=== PATIENT | male | born 1965 | race African-American/Black ===

== ENCOUNTER 2020-08-16 12:32 | Inpatient (IN) | payer OTHER ==
[2020-08-16 15:19] VITALS: BMI 31.2
[2020-08-16] MEDS ORDERED: IBUPROFEN 400 MG TABLET (FP) PO PRN (17:12)
[2020-08-16] MEDS ORDERED: NICOTINE POLACRILEX 2 MG GUM BC PRN (17:12)
[2020-08-16] MEDS ORDERED: ACETAMINOPHEN 325 MG TABLET (FP) PO PRN (17:12)
[2020-08-16] MEDS ORDERED: LOPERAMIDE HCL 2 MG CAPSULE PO PRN (17:12)
[2020-08-16] MEDS ORDERED: P-EPHED 60MG/TRIPROLIDI 2.5MG TABLET PO PRN (17:12)
[2020-08-16] MEDS ORDERED: MAG HYDROX/AL HYDROX/SIMETH 30 ML UNIT-DOSE CUP PO PRN (17:12)
[2020-08-16] MEDS ORDERED: guaiFENesin 200 MG/10 ML 10 ML UNIT-DOSE CUPS PO PRN (17:12)
[2020-08-16] MEDS ORDERED: MAGNESIUM CITRATE 300 ML BOTTLE PO PRN (17:12)
[2020-08-16] MEDS ORDERED: MAGNESIUM HYDROX 2400MG/30ML ORAL SUSPENSION 30 ML CUP PO PRN (17:12)
[2020-08-16] MEDS ORDERED: TUBERCULIN PPD 5 TU/0.1ML VIAL ID ONE ×2 (17:51→22:33)
[2020-08-16] MEDS: NICOTINE 7 MG/24 HOURS TOPICAL PATCH TD SCH (18:31)
[2020-08-16] MEDS ORDERED: THIAMINE HCL 100 MG TABLET (FP) PO SCH (22:00)
[2020-08-16] MEDS ORDERED: MELATONIN 5 MG TABLETS PO SCH (22:00)
[2020-08-17 06:49] VITALS: PULSE 60; TEMP 97.1
[2020-08-17] MEDS ORDERED: metFORMIN HCL 500 MG TABLET (FP) PO SCH (07:00)
[2020-08-17 07:15] VITALS: BP 160/80
[2020-08-17] MEDS ORDERED: METHADONE HCL 10 MG TABLET PO ONE (09:06)
[2020-08-17] MEDS ORDERED: METHADONE HCL 10 MG TABLET ONE (09:13)
[2020-08-17] MEDS ORDERED: METHADONE HCL 40 MG DISPERSABLE TABLET ONE (09:13)
[2020-08-17] MEDS ORDERED: METHADONE 80 MG, METHADONE 20 MG PO ONE (09:15)
[2020-08-17] MEDS: NICOTINE 7 MG/24 HOURS TOPICAL PATCH TD SCH (09:16)
[2020-08-17 09:39] LABS: HEMATOCRIT 37.1 % (35.4-49); HEMOGLOBIN 12.3 GM/dL (11.7-16.9); MCH 28.6 pg (25.7-33.7); MCHC 33.2 g/dl (32.0-35.9); MEAN CELL VOLUME 86.2 fl (80-96); MEAN PLT VOLUME 10.1 fl (7.5-11.1); PLATELET COUNT 250 K/MM3 (134-434); RBC 4.31 M/mm3 (4.00-5.60); RDW 14.8 % (11.9-15.9); WHITE BLOOD COUNT 6.6 K/mm3 (4.0-10.0)
[2020-08-17 09:58] LABS: CALCIUM 9.3 mg/dL (8.5-10.1)
[2020-08-17 09:59] LABS: ALBUMIN 3.8 g/dl (3.4-5.0); BLOOD UREA NITROGEN 23.2 mg/dL (7-18)
[2020-08-17] MEDS ORDERED: amLODIPine BESYLATE 5 MG TABLET (FP) PO SCH (10:00)
[2020-08-17] MEDS ORDERED: NICOTINE 21 MG/24 HOURS TOPICAL PATCH TD SCH (10:00)
[2020-08-17] MEDS ORDERED: PRENATAL VITAMINS W/ FOLIC ACID TABLET (FP) PO SCH (10:00)
[2020-08-17 10:02] LABS: CREATININE 1.7 mg/dL (0.55-1.3)
[2020-08-17 10:04] LABS: BILIRUBIN,TOTAL 0.4 mg/dL (0.2-1); TOT PROT 8.2 g/dl (6.4-8.2)
== END 2020-08-17 09:17 | disposition left against medical advice (07) | DRG 770 ==
LOC: YASAS 12:32 → Y3E 16:48
PROVIDERS: ADMIT Allergy & Immunology; ATTEND Allergy & Immunology
PROC: HZ42ZZZ Group Counseling for Substance Abuse Treatment, Cognitive-Behavioral (ICD-10-PCS; principal; 2020-08-16)
DX: F14.20 Cocaine dependence, uncomplicated (principal); F11.20 Opioid dependence, uncomplicated; F17.210 Nicotine dependence, cigarettes, uncomplicated; I10 Essential (primary) hypertension; E11.9 Type 2 diabetes mellitus without complications; Z79.84 Long term (current) use of oral hypoglycemic drugs
CPT/HCPCS: 36415; 80053; 82962; 85027; 86780

== ENCOUNTER 2020-10-26 09:43 | Inpatient (IN) | payer OTHER ==
[2020-10-26 11:36] VITALS: BMI 31.4
[2020-10-26] MEDS ORDERED: MAG HYDROX/AL HYDROX/SIMETH 30 ML UNIT-DOSE CUP PO PRN (17:12)
[2020-10-26] MEDS ORDERED: P-EPHED 60MG/TRIPROLIDI 2.5MG TABLET PO PRN (17:12)
[2020-10-26] MEDS ORDERED: hydrOXYzine PAMOATE 25 MG CAPSULE (FP) PO PRN (17:12)
[2020-10-26] MEDS ORDERED: LOPERAMIDE HCL 2 MG CAPSULE PO PRN (17:12)
[2020-10-26] MEDS ORDERED: ACETAMINOPHEN 325 MG TABLET (FP) PO PRN (17:12)
[2020-10-26] MEDS ORDERED: guaiFENesin 200 MG/10 ML 10 ML UNIT-DOSE CUPS PO PRN (17:12)
[2020-10-26] MEDS ORDERED: MAGNESIUM CITRATE 300 ML BOTTLE PO PRN (17:12)
[2020-10-26] MEDS ORDERED: NICOTINE POLACRILEX 2 MG GUM BC PRN (17:12)
[2020-10-26] MEDS ORDERED: MAGNESIUM HYDROX 2400MG/30ML ORAL SUSPENSION 30 ML CUP PO PRN (17:12)
[2020-10-26] MEDS ORDERED: IBUPROFEN 400 MG TABLET (FP) PO PRN (17:12)
[2020-10-26] MEDS ORDERED: CLOTRIMAZOLE 1% CREAM 15 GM TUBE TP PRN (18:56)
[2020-10-26] MEDS ORDERED: THIAMINE HCL 100 MG TABLET (FP) PO SCH (22:00)
[2020-10-26] MEDS ORDERED: MELATONIN 5 MG TABLETS PO SCH (22:00)
[2020-10-27 06:36] VITALS: BP 158/53; PULSE 65; TEMP 97.8
[2020-10-27] MEDS ORDERED: metFORMIN HCL 500 MG TABLET (FP) PO SCH (07:00)
[2020-10-27] MEDS ORDERED: METHADONE HCL 40 MG DISPERSABLE TABLET ONE (07:30)
[2020-10-27] MEDS ORDERED: METHADONE 80 MG, METHADONE 20 MG PO SCH (07:30)
[2020-10-27] MEDS ORDERED: METHADONE HCL 10 MG TABLET PO SCH (07:30)
[2020-10-27] MEDS ORDERED: METHADONE HCL 10 MG TABLET ONE (07:30)
[2020-10-27] MEDS ORDERED: amLODIPine BESYLATE 2.5 MG TABLET (FP) PO SCH (10:00)
[2020-10-27] MEDS ORDERED: PRENATAL VITAMINS W/ FOLIC ACID TABLET (FP) PO SCH (10:00)
[2020-10-27 15:32] LABS: HEMOGLOBIN 12.2 GM/dL (11.7-16.9); MCH 27.7 pg (25.7-33.7); MCHC 32.1 g/dl (32.0-35.9); MEAN CELL VOLUME 86.2 fl (80-96); MEAN PLT VOLUME 8.6 fl (7.5-11.1); PLATELET COUNT 301 10^3/uL (134-434); RBC 4.41 M/mm3 (4.00-5.60); RDW 14.5 % (11.9-15.9); WHITE BLOOD COUNT 6.3 K/mm3 (4.0-10.0)
[2020-10-27 15:40] LABS: ALBUMIN 3.8 g/dl (3.4-5.0); CALCIUM 9.2 mg/dL (8.5-10.1)
[2020-10-27 15:41] LABS: BLOOD UREA NITROGEN 23.8 mg/dL (7-18); CREATININE 1.4 mg/dL (0.55-1.3)
[2020-10-27 15:44] LABS: BILIRUBIN,TOTAL 0.3 mg/dL (0.2-1); TOT PROT 8.5 g/dl (6.4-8.2)
== END 2020-10-27 15:50 | disposition left against medical advice (07) | DRG 770 ==
LOC: YASAS 09:43 → Y3W 18:18
PROVIDERS: ADMIT Allergy & Immunology; ATTEND Allergy & Immunology
PROC: HZ42ZZZ Group Counseling for Substance Abuse Treatment, Cognitive-Behavioral (ICD-10-PCS; principal; 2020-10-26)
DX: F14.20 Cocaine dependence, uncomplicated (principal); F11.20 Opioid dependence, uncomplicated; F10.10 Alcohol abuse, uncomplicated; F17.210 Nicotine dependence, cigarettes, uncomplicated; I10 Essential (primary) hypertension; E11.9 Type 2 diabetes mellitus without complications; Z79.84 Long term (current) use of oral hypoglycemic drugs
CPT/HCPCS: 36415; 80053; 82962; 85027; 86780; C9803; U0003; U0005

== ENCOUNTER 2023-08-10 11:35 | Inpatient (IN) | payer OTHER ==
[2023-08-10 12:26] VITALS: BMI 30.2
[2023-08-10] MEDS ORDERED: DICYCLOMINE HCL 10 MG CAPSULE PO PRN (13:25)
[2023-08-10] MEDS ORDERED: MAG HYDROX/AL HYDROX/SIMETH 30 ML UNIT-DOSE CUP PO PRN (13:25)
[2023-08-10] MEDS ORDERED: NALOXONE HCL 0.4 MG/ML VIAL IM PRN (13:25)
[2023-08-10] MEDS ORDERED: BENZONATATE 200 MG CAPSULE PO PRN (13:25)
[2023-08-10] MEDS ORDERED: diazePAM 5 MG TABLET PO PRN (13:25)
[2023-08-10] MEDS ORDERED: BENZOCAINE/MENTHOL (CHLORASEPTIC ) LOZENGE MM PRN (13:25)
[2023-08-10] MEDS ORDERED: guaiFENesin 600 MG TABLET.ER (FP) PO PRN (13:25)
[2023-08-10] MEDS ORDERED: MAGNESIUM HYDROX 2400MG/30ML ORAL SUSPENSION 30 ML CUP PO PRN (13:25)
[2023-08-10] MEDS ORDERED: BISMUTH SUBSALICYLATE 524 MG/30 ML PO PRN (13:25)
[2023-08-10] MEDS ORDERED: ACETAMINOPHEN 325 MG TABLET (FP) PO PRN (13:25)
[2023-08-10] MEDS ORDERED: POLYETHYLENE GLYCOL (HEALTHYLAX) 3350 17 GM PACKET PO PRN (13:25)
[2023-08-10] MEDS ORDERED: NALOXONE HCL (KLOXXADO) 8 MG SPRAY NS PRN (13:25)
[2023-08-10] MEDS ORDERED: IBUPROFEN 400 MG TABLET (FP) PO PRN (13:25)
[2023-08-10] MEDS ORDERED: LOPERAMIDE HCL 2 MG CAPSULE PO PRN (13:25)
[2023-08-10] MEDS ORDERED: PRENATAL VITAMINS W/ FOLIC ACID TABLET (FP) PO ONE (14:08)
[2023-08-10] MEDS ORDERED: NICOTINE 21 MG/24 HOURS TOPICAL PATCH ONE (14:08)
[2023-08-10] MEDS: NICOTINE 21 MG/24 HOURS TOPICAL PATCH TD SCH (14:30)
[2023-08-10] MEDS: PRENATAL VITAMINS W/ FOLIC ACID TABLET (FP) PO SCH (14:30)
[2023-08-10] MEDS: metFORMIN HCL 500 MG TABLET (FP) PO SCH (17:53)
[2023-08-10] MEDS: MELATONIN 5 MG TABLETS PO SCH (22:24)
[2023-08-10] MEDS: THIAMINE HCL 100 MG TABLET (FP) PO SCH (22:24)
[2023-08-10] MEDS: diazePAM 5 MG TABLET PO SCH (22:25)
[2023-08-11] MEDS ORDERED: methaDONE HCL 10 MG TABLET PO SCH (06:00)
[2023-08-11] MEDS: methaDONE 80 MG, methaDONE 20 MG PO SCH (06:23)
[2023-08-11] MEDS: amLODIPine BESYLATE 2.5 MG TABLET (FP) PO SCH (10:19)
[2023-08-11] MEDS: ONDANSETRON *ODT* 4 MG TABLET SL PRN (10:19)
[2023-08-11] MEDS: METHOCARBAMOL 500 MG TABLET PO PRN (10:19)
[2023-08-11] MEDS: IBUPROFEN 600 MG TABLET (FP) PO PRN (10:20)
[2023-08-11 15:30] LABS: CHLORIDE 106 mmol/L (98-107); POTASSIUM 4.7 mmol/L (3.5-5.1); SODIUM 140 mmol/L (136-145)
[2023-08-11 15:40] LABS: HEMOGLOBIN 11.2 GM/dL (11.7-16.9); MCH 27.4 pg (25.7-33.7); MCHC 31.9 g/dl (32.0-35.9); MEAN CELL VOLUME 85.9 fl (80-96); PLATELET COUNT 224 10^3/uL (134-434); RBC 4.07 M/mm3 (4.00-5.60); RDW 14.1 % (11.9-15.9); WHITE BLOOD COUNT 5.3 K/mm3 (4.0-10.0)
[2023-08-11 15:43] LABS: CALCIUM 9.3 mg/dL (8.5-10.1)
[2023-08-11 15:44] LABS: ALBUMIN 3.5 g/dl (3.4-5.0); ANION GAP 4 mmol/L (4-13); BLOOD UREA NITROGEN 21.3 mg/dL (7-18); CO2 29 mmol/L (21-32); GLUCOSE,RANDOM 186 mg/dL (74-106)
[2023-08-11 15:47] LABS: CREATININE 1.3 mg/dL (0.55-1.3); SGOT/AST 19 U/L (15-37); SGPT/ALT 29 U/L (13-61)
[2023-08-11 15:48] LABS: BILIRUBIN,TOTAL 0.2 mg/dL (0.2-1)
[2023-08-11 15:49] LABS: TOT PROT 7.6 g/dl (6.4-8.2)
[2023-08-11 15:50] LABS: ALK PHOS 113 U/L (45-117)
[2023-08-12] MEDS: diazePAM 5 MG TABLET PO SCH (05:59)
[2023-08-12] MEDS: metFORMIN HCL 500 MG TABLET (FP) PO SCH (16:42)
[2023-08-12] MEDS: LACTULOSE 20 GM/30 ML UDC (FOR ORAL USE ONLY) PO SCH (17:40)
[2023-08-13] MEDS: diazePAM 5 MG TABLET PO SCH (06:19)
[2023-08-13 20:45] VITALS: TEMP 97.7
[2023-08-13] MEDS: hydrOXYzine PAMOATE 25 MG CAPSULE (FP) PO PRN (22:45)
[2023-08-14] MEDS: diazePAM 5 MG TABLET PO ONE (05:53)
[2023-08-14 06:12] VITALS: BP 139/62; PULSE 60; RESP 16
== END 2023-08-14 09:30 | disposition home or self-care (01) | DRG 773 ==
LOC: YASAS 11:35 → Y6N 14:13
PROVIDERS: ADMIT Allergy & Immunology; ATTEND Surgery
PROC: HZ2ZZZZ Detoxification Services for Substance Abuse Treatment (ICD-10-PCS; principal; 2023-08-10)
DX: F10.230 Alcohol dependence with withdrawal, uncomplicated (principal); F11.20 Opioid dependence, uncomplicated; F14.20 Cocaine dependence, uncomplicated; F17.210 Nicotine dependence, cigarettes, uncomplicated; I10 Essential (primary) hypertension; E11.9 Type 2 diabetes mellitus without complications; Z79.84 Long term (current) use of oral hypoglycemic drugs
CPT/HCPCS: 36415; 80053; 80307; 82140; 82962; 83036; 84520; 85027; 86780; 93005; 93010; Q0162

== ENCOUNTER 2023-08-27 11:44 | Inpatient (IN) | payer OTHER ==
[2023-08-27 13:37] VITALS: BMI 30.1
[2023-08-27] MEDS ORDERED: guaiFENesin 600 MG TABLET.ER (FP) PO PRN (15:38)
[2023-08-27] MEDS ORDERED: BENZOCAINE/MENTHOL (CHLORASEPTIC ) LOZENGE MM PRN (15:38)
[2023-08-27] MEDS ORDERED: IBUPROFEN 400 MG TABLET (FP) PO PRN (15:38)
[2023-08-27] MEDS ORDERED: ACETAMINOPHEN 325 MG TABLET (FP) PO PRN (15:38)
[2023-08-27] MEDS ORDERED: POLYETHYLENE GLYCOL (HEALTHYLAX) 3350 17 GM PACKET PO PRN (15:38)
[2023-08-27] MEDS ORDERED: MAGNESIUM HYDROX 2400MG/30ML ORAL SUSPENSION 30 ML CUP PO PRN (15:38)
[2023-08-27] MEDS ORDERED: NALOXONE HCL (KLOXXADO) 8 MG SPRAY NS PRN (15:38)
[2023-08-27] MEDS ORDERED: LOPERAMIDE HCL 2 MG CAPSULE PO PRN (15:38)
[2023-08-27] MEDS ORDERED: NICOTINE POLACRILEX 2 MG GUM BUC PRN (15:38)
[2023-08-27] MEDS ORDERED: NALOXONE HCL 0.4 MG/ML VIAL IM PRN (15:38)
[2023-08-27] MEDS ORDERED: MAG HYDROX/AL HYDROX/SIMETH 30 ML UNIT-DOSE CUP PO PRN (15:38)
[2023-08-27] MEDS ORDERED: IBUPROFEN 600 MG TABLET (FP) PO PRN (15:38)
[2023-08-27] MEDS ORDERED: BENZONATATE 200 MG CAPSULE PO PRN (15:38)
[2023-08-27] MEDS: metFORMIN HCL 500 MG TABLET (FP) PO SCH (18:19)
[2023-08-27] MEDS: MELATONIN 5 MG TABLETS PO SCH (21:27)
[2023-08-27] MEDS: THIAMINE 100 MG TABLET PO SCH (21:27)
[2023-08-28] MEDS ORDERED: methaDONE HCL 10 MG TABLET PO SCH (09:30)
[2023-08-28] MEDS: methaDONE 80 MG, methaDONE 20 MG PO SCH (09:57)
[2023-08-28] MEDS: PRENATAL VITAMINS W/ FOLIC ACID TABLET (FP) PO SCH (09:57)
[2023-08-28 12:24] LABS: PH,URINE 5.5 (5.0-8.0); URINE APPEARANCE CLEAR; URINE BILIRUBIN NEGATIVE (NEGATIVE); URINE COLOR YELLOW; URINE GLUCOSE (UA) NEGATIVE (NEGATIVE); URINE KETONE NEGATIVE (NEGATIVE); URINE LEUK ESTERASE NEGATIVE (NEGATIVE); URINE NITRITE NEGATIVE (NEGATIVE); URINE PROTEIN NEGATIVE (NEGATIVE); URINE UROBILINOGEN 0.2 mg/dL (0.2-1.0)
[2023-08-30] MEDS: MELATONIN 5 MG TABLETS PO ONE (01:12)
[2023-08-30] MEDS: MELATONIN 5 MG TABLETS PO PRN (21:17)
[2023-09-05 06:40] VITALS: RESP 18
[2023-09-05] MEDS ORDERED: methaDONE HCL 40 MG DISPERSABLE TABLET PO SCH (06:45)
[2023-09-05] MEDS: methaDONE 80 MG, methaDONE 20 MG PO SCH (07:01)
[2023-09-10 07:02] VITALS: BP 177/83; PULSE 60; TEMP 97.5
== END 2023-09-10 10:08 | disposition home or self-care (01) | DRG 772 ==
LOC: YASAS 11:44 → Y5N 17:19
PROVIDERS: ADMIT Allergy & Immunology; ATTEND Psychiatry & Neurology Pain Medicine
PROC: HZ42ZZZ Group Counseling for Substance Abuse Treatment, Cognitive-Behavioral (ICD-10-PCS; principal; 2023-08-27)
DX: F14.20 Cocaine dependence, uncomplicated (principal); F11.20 Opioid dependence, uncomplicated; F10.20 Alcohol dependence, uncomplicated; F17.210 Nicotine dependence, cigarettes, uncomplicated; F19.24 Other psychoactive substance dependence with psychoactive substance-induced mood disorder; I10 Essential (primary) hypertension; E11.9 Type 2 diabetes mellitus without complications; Z79.84 Long term (current) use of oral hypoglycemic drugs; Z62.810 Personal history of physical and sexual abuse in childhood; Z63.9 Problem related to primary support group, unspecified
CPT/HCPCS: 80305; 81003; 82962

== ENCOUNTER 2023-10-08 13:41 | Inpatient (IN) | payer OTHER ==
[2023-10-08 14:55] VITALS: BMI 31.3
[2023-10-08] MEDS ORDERED: IBUPROFEN 400 MG TABLET (FP) PO PRN (15:40)
[2023-10-08] MEDS ORDERED: BISMUTH SUBSALICYLATE 524 MG/30 ML PO PRN (15:40)
[2023-10-08] MEDS ORDERED: NALOXONE HCL (KLOXXADO) 8 MG SPRAY NS PRN (15:40)
[2023-10-08] MEDS ORDERED: BENZOCAINE/MENTHOL (CHLORASEPTIC ) LOZENGE MM PRN (15:40)
[2023-10-08] MEDS ORDERED: DICYCLOMINE HCL 10 MG CAPSULE PO PRN (15:40)
[2023-10-08] MEDS ORDERED: ONDANSETRON *ODT* 4 MG TABLET SL PRN (15:40)
[2023-10-08] MEDS ORDERED: ACETAMINOPHEN 325 MG TABLET (FP) PO PRN (15:40)
[2023-10-08] MEDS ORDERED: MAGNESIUM HYDROX 2400MG/30ML ORAL SUSPENSION 30 ML CUP PO PRN (15:40)
[2023-10-08] MEDS ORDERED: LORazepam 1 MG TABLET PO PRN (15:40)
[2023-10-08] MEDS ORDERED: METHOCARBAMOL 500 MG TABLET PO PRN (15:40)
[2023-10-08] MEDS ORDERED: guaiFENesin 600 MG TABLET.ER (FP) PO PRN (15:40)
[2023-10-08] MEDS ORDERED: NALOXONE HCL 0.4 MG/ML VIAL IM PRN (15:40)
[2023-10-08] MEDS ORDERED: BENZONATATE 200 MG CAPSULE PO PRN (15:40)
[2023-10-08] MEDS ORDERED: hydrOXYzine PAMOATE 25 MG CAPSULE (FP) PO PRN (15:40)
[2023-10-08] MEDS ORDERED: IBUPROFEN 600 MG TABLET (FP) PO PRN (15:40)
[2023-10-08] MEDS ORDERED: MAG HYDROX/AL HYDROX/SIMETH 30 ML UNIT-DOSE CUP PO PRN (15:40)
[2023-10-08] MEDS ORDERED: POLYETHYLENE GLYCOL (HEALTHYLAX) 3350 17 GM PACKET PO PRN (15:40)
[2023-10-08] MEDS ORDERED: LOPERAMIDE HCL 2 MG CAPSULE PO PRN (15:40)
[2023-10-08] MEDS: LORazepam 2 MG TABLET PO SCH (18:01)
[2023-10-08] MEDS: metFORMIN HCL 500 MG TABLET (FP) PO SCH (18:03)
[2023-10-08] MEDS: NICOTINE 14 MG/24 HOURS TOPICAL PATCH TD SCH (18:30)
[2023-10-08] MEDS: PRENATAL VITAMINS W/ FOLIC ACID TABLET (FP) PO SCH (18:30)
[2023-10-08] MEDS: THIAMINE 100 MG TABLET PO SCH (23:40)
[2023-10-08] MEDS: MELATONIN 5 MG TABLETS PO SCH (23:40)
[2023-10-09] MEDS ORDERED: methaDONE HCL 10 MG TABLET PO ONE (08:44)
[2023-10-09] MEDS: methaDONE 80 MG, methaDONE 20 MG PO ONE (09:12)
[2023-10-09 11:55] LABS: CHLORIDE 108 mmol/L (98-107); POTASSIUM 4.9 mmol/L (3.5-5.1); SODIUM 140 mmol/L (136-145)
[2023-10-09 11:56] LABS: HEMATOCRIT 35.9 % (35.4-49); HEMOGLOBIN 11.7 GM/dL (11.7-16.9); MCH 27.1 pg (25.7-33.7); MCHC 32.5 g/dl (32.0-35.9); MEAN CELL VOLUME 83.4 fl (80-96); MEAN PLT VOLUME 9.1 fl (7.5-11.1); PLATELET COUNT 235 10^3/uL (134-434); RDW 14.8 % (11.9-15.9); WHITE BLOOD COUNT 4.9 K/mm3 (4.0-10.0)
[2023-10-09 12:07] LABS: ANION GAP 5 mmol/L (4-13); BLOOD UREA NITROGEN 42.9 mg/dL (7-18); CO2 27 mmol/L (21-32); GLUCOSE,RANDOM 142 mg/dL (74-106)
[2023-10-09 12:10] LABS: ALBUMIN 3.4 g/dl (3.4-5.0); CALCIUM 8.9 mg/dL (8.5-10.1); CREATININE 1.9 mg/dL (0.55-1.3); SGPT/ALT 14 U/L (13-61)
[2023-10-09 12:11] LABS: TOT PROT 7.7 g/dl (6.4-8.2)
[2023-10-09 12:13] LABS: ALK PHOS 105 U/L (45-117); SGOT/AST 15 U/L (15-37)
[2023-10-09 12:15] LABS: BILIRUBIN,TOTAL 0.2 mg/dL (0.2-1)
[2023-10-09 12:47] LABS: HIV INTERPRETATION NEGATIVE (NEGATIVE)
[2023-10-09] MEDS: LACTULOSE 20 GM/30 ML UDC (FOR ORAL USE ONLY) PO SCH (13:35)
[2023-10-09] MEDS: LORazepam 2 MG TABLET PO SCH (18:13)
[2023-10-10] MEDS: LORazepam 1 MG TABLET PO SCH (05:50)
[2023-10-10] MEDS ORDERED: methaDONE HCL 10 MG TABLET PO SCH (06:00)
[2023-10-10] MEDS: methaDONE 80 MG, methaDONE 20 MG PO SCH (06:04)
[2023-10-11] MEDS ORDERED: LORazepam 0.5 MG TABLET PO PRN
[2023-10-11] MEDS: LORazepam 0.5 MG TABLET PO SCH (05:42)
[2023-10-12] MEDS: LORazepam 0.5 MG TABLET PO ONE (06:09)
[2023-10-12 06:21] VITALS: RESP 16
[2023-10-12 08:42] VITALS: BP 123/65; PULSE 62; TEMP 97.8
== END 2023-10-12 10:45 | disposition home or self-care (01) | DRG 773 ==
LOC: YASAS 13:41 → Y6N 17:20
PROVIDERS: ADMIT Allergy & Immunology; ATTEND Surgery
PROC: HZ2ZZZZ Detoxification Services for Substance Abuse Treatment (ICD-10-PCS; principal; 2023-10-08)
DX: F10.230 Alcohol dependence with withdrawal, uncomplicated (principal); F11.20 Opioid dependence, uncomplicated; F14.20 Cocaine dependence, uncomplicated; F17.210 Nicotine dependence, cigarettes, uncomplicated; F19.24 Other psychoactive substance dependence with psychoactive substance-induced mood disorder; I10 Essential (primary) hypertension; E11.9 Type 2 diabetes mellitus without complications; Z79.84 Long term (current) use of oral hypoglycemic drugs; R79.89 Other specified abnormal findings of blood chemistry; Z59.01 Sheltered homelessness
CPT/HCPCS: 36415; 80053; 80305; 80307; 82140; 82962; 85027; 86780; 87389

== ENCOUNTER 2024-01-28 11:25 | Inpatient (IN) | payer OTHER ==
[2024-01-28 11:58] VITALS: BMI 28.9
[2024-01-28] MEDS ORDERED: NALOXONE HCL 0.4 MG/ML VIAL IM PRN (12:10)
[2024-01-28] MEDS ORDERED: ACETAMINOPHEN 325 MG TABLET (FP) PO PRN (12:10)
[2024-01-28] MEDS ORDERED: IBUPROFEN 600 MG TABLET (FP) PO PRN (12:10)
[2024-01-28] MEDS ORDERED: NICOTINE POLACRILEX 2 MG LOZENGE BC PRN (12:10)
[2024-01-28] MEDS ORDERED: POLYETHYLENE GLYCOL (HEALTHYLAX) 3350 17 GM PACKET PO PRN (12:10)
[2024-01-28] MEDS ORDERED: IBUPROFEN 400 MG TABLET (FP) PO PRN (12:10)
[2024-01-28] MEDS ORDERED: LOPERAMIDE HCL 2 MG CAPSULE PO PRN (12:10)
[2024-01-28] MEDS ORDERED: BENZONATATE 200 MG CAPSULE PO PRN (12:10)
[2024-01-28] MEDS ORDERED: MAG HYDROX/AL HYDROX/SIMETH 30 ML UNIT-DOSE CUP PO PRN (12:10)
[2024-01-28] MEDS ORDERED: NALOXONE (NARCAN) HCL 4 MG/0.1 ML SPRAY NS PRN (12:10)
[2024-01-28] MEDS ORDERED: NICOTINE POLACRILEX 2 MG GUM BUC PRN (12:10)
[2024-01-28] MEDS ORDERED: MAGNESIUM HYDROX 2400MG/30ML ORAL SUSPENSION 30 ML CUP PO PRN (12:10)
[2024-01-28] MEDS ORDERED: BENZOCAINE/MENTHOL (CHLORASEPTIC ) LOZENGE MM PRN (12:10)
[2024-01-28] MEDS ORDERED: guaiFENesin 600 MG TABLET.ER (FP) PO PRN (12:10)
[2024-01-28] MEDS: CLOTRIMAZOLE/BETAMET DIPROP 15 GM TUBE TP SCH (15:47)
[2024-01-28] MEDS: metFORMIN HCL 500 MG TABLET (FP) PO SCH (16:12)
[2024-01-28 17:16] LABS: PH,URINE 5.5 (5.0-8.0); URINE APPEARANCE CLEAR; URINE BILIRUBIN 1+ (NEGATIVE); URINE COLOR DK YELLOW; URINE GLUCOSE (UA) NEGATIVE (NEGATIVE); URINE KETONE TRACE (NEGATIVE); URINE LEUK ESTERASE NEGATIVE (NEGATIVE); URINE NITRITE NEGATIVE (NEGATIVE); URINE PROTEIN TRACE (NEGATIVE)
[2024-01-28] MEDS: ATORVASTATIN CA 40 MG TABLET (FP) PO SCH (22:35)
[2024-01-28] MEDS: THIAMINE 100 MG TABLET PO SCH (22:35)
[2024-01-28] MEDS: MELATONIN 5 MG TABLETS PO SCH (22:35)
[2024-01-28] MEDS: BUDESONIDE/FORMETEROL FUMARATE 160/4.5 mcg INHALER IH SCH (22:36)
[2024-01-29] MEDS: methaDONE 80 MG, methaDONE 20 MG PO SCH (05:31)
[2024-01-29] MEDS ORDERED: methaDONE HCL 40 MG DISPERSABLE TABLET PO SCH (06:00)
[2024-01-29] MEDS ORDERED: methaDONE HCL 10 MG TABLET PO SCH (06:00)
[2024-01-29] MEDS: FOLIC ACID 1 MG TABLET (FP) PO SCH (09:15)
[2024-01-29] MEDS: LISINOPRIL 20 MG TABLET PO SCH (09:15)
[2024-01-29] MEDS: PRENATAL VITAMINS W/ FOLIC ACID TABLET (FP) PO SCH (09:15)
[2024-01-29 13:51] LABS: HEMATOCRIT 34.1 % (35.4-49); MCHC 32.3 g/dl (32.0-35.9); MEAN CELL VOLUME 83.5 fl (80-96); MEAN PLT VOLUME 8.6 fl (7.5-11.1); PLATELET COUNT 281 10^3/uL (134-434); RBC 4.08 M/mm3 (4.00-5.60); RDW 14.9 % (11.9-15.9); WHITE BLOOD COUNT 6.2 K/mm3 (4.0-10.0)
[2024-01-29 14:26] LABS: POTASSIUM 4.5 mmol/L (3.5-5.1)
[2024-01-29 14:28] LABS: CALCIUM 9.2 mg/dL (8.5-10.1)
[2024-01-29 14:29] LABS: ALBUMIN 3.5 g/dl (3.4-5.0)
[2024-01-29 14:32] LABS: CREATININE 1.6 mg/dL (0.55-1.3)
[2024-01-29 14:33] LABS: BILIRUBIN,TOTAL 0.2 mg/dL (0.2-1); TOT PROT 7.8 g/dl (6.4-8.2)
[2024-01-29] MEDS: hydrOXYzine PAMOATE 25 MG CAPSULE (FP) PO PRN (21:47)
[2024-01-29] MEDS: MELATONIN 5 MG TABLETS PO ONE (23:21)
[2024-01-30] MEDS: sitaGLIPtin PHOSPHATE 50 MG TABLET PO SCH (06:28)
[2024-01-30] MEDS: SUVOREXANT 10 MG TABLET PO PRN (21:17)
[2024-02-01] MEDS: SUVOREXANT 20 MG TABLET PO PRN (21:16)
[2024-02-01] MEDS ORDERED: SUVOREXANT 10 MG TABLET PO PRN (22:00)
[2024-02-02] MEDS: traZODone HCL 50 MG TABLET (FP) PO SCH (21:48)
[2024-02-05] MEDS: traZODone HCL 100 MG TABLET (FP) PO SCH (21:37)
[2024-02-07] MEDS: traZODone HCL 50 MG TABLET (FP) PO SCH (21:30)
[2024-02-08] MEDS: FUROSEMIDE 20 MG TABLET (FP) PO SCH (12:47)
[2024-02-08] MEDS: BACLOFEN 10 MG TABLET (FP) PO SCH (12:47)
[2024-02-08] MEDS ORDERED: NALOXONE (NYS OPIOID OVERDOSE PROGRAM) 4 MG/0.1 ML SPRAY NS PRN (14:50)
[2024-02-08] MEDS: NALOXONE (NYS OPIOID OVERDOSE PROGRAM) 4 MG/0.1 ML SPRAY NS ONE (16:07)
[2024-02-11 06:33] VITALS: TEMP 96.8
[2024-02-11 09:43] VITALS: BP 137/54; PULSE 80; RESP 18
== END 2024-02-11 09:07 | disposition home or self-care (01) | DRG 772 ==
LOC: YASAS 11:25 → Y3NR 14:31 → Y3W 01-29 11:20
PROVIDERS: ADMIT Psychiatry & Neurology Pain Medicine; ATTEND Psychiatry & Neurology Pain Medicine
PROC: HZ42ZZZ Group Counseling for Substance Abuse Treatment, Cognitive-Behavioral (ICD-10-PCS; principal; 2024-01-28)
DX: F14.20 Cocaine dependence, uncomplicated (principal); F11.20 Opioid dependence, uncomplicated; F17.210 Nicotine dependence, cigarettes, uncomplicated; F19.282 Other psychoactive substance dependence with psychoactive substance-induced sleep disorder; F19.24 Other psychoactive substance dependence with psychoactive substance-induced mood disorder; G47.00 Insomnia, unspecified; E78.5 Hyperlipidemia, unspecified; I10 Essential (primary) hypertension; J45.909 Unspecified asthma, uncomplicated; E11.9 Type 2 diabetes mellitus without complications; Z79.84 Long term (current) use of oral hypoglycemic drugs; M25.561 Pain in right knee; R60.0 Localized edema; Z99.89 Dependence on other enabling machines and devices
CPT/HCPCS: 36415; 80053; 80305; 80307; 81003; 82962; 85027; 87811; J0475

== ENCOUNTER 2024-06-19 11:03 | Inpatient (IN) | payer OTHER ==
[2024-06-19 11:29] VITALS: BMI 30.1
[2024-06-19] MEDS ORDERED: guaiFENesin 600 MG TABLET.ER (FP) PO PRN (12:17)
[2024-06-19] MEDS ORDERED: BENZONATATE 200 MG CAPSULE PO PRN (12:17)
[2024-06-19] MEDS ORDERED: MAG HYDROX/AL HYDROX/SIMETH 30 ML UNIT-DOSE CUP PO PRN (12:17)
[2024-06-19] MEDS ORDERED: POLYETHYLENE GLYCOL (HEALTHYLAX) 3350 17 GM PACKET PO PRN (12:17)
[2024-06-19] MEDS ORDERED: IBUPROFEN 400 MG TABLET (FP) PO PRN (12:17)
[2024-06-19] MEDS ORDERED: BENZOCAINE/MENTHOL (CHLORASEPTIC ) LOZENGE MM PRN (12:17)
[2024-06-19] MEDS ORDERED: IBUPROFEN 600 MG TABLET (FP) PO PRN (12:17)
[2024-06-19] MEDS ORDERED: LOPERAMIDE HCL 2 MG CAPSULE PO PRN (12:17)
[2024-06-19] MEDS ORDERED: NALOXONE (NARCAN) HCL 4 MG/0.1 ML SPRAY NS PRN (12:17)
[2024-06-19] MEDS ORDERED: hydrOXYzine PAMOATE 25 MG CAPSULE (FP) PO PRN (12:17)
[2024-06-19] MEDS ORDERED: MAGNESIUM HYDROX 2400MG/30ML ORAL SUSPENSION 30 ML CUP PO PRN (12:17)
[2024-06-19] MEDS ORDERED: ACETAMINOPHEN 325 MG TABLET (FP) PO PRN (12:17)
[2024-06-19] MEDS ORDERED: PRENATAL VITAMINS W/ FOLIC ACID TABLET (FP) PO ONE (13:32)
[2024-06-19] MEDS ORDERED: NICOTINE 21 MG/24 HOURS TOPICAL PATCH ONE (13:32)
[2024-06-19] MEDS: NICOTINE 21 MG/24 HOURS TOPICAL PATCH TD SCH (13:35)
[2024-06-19] MEDS: PRENATAL VITAMINS W/ FOLIC ACID TABLET (FP) PO SCH (13:36)
[2024-06-19 20:09] LABS: PH,URINE 5.5 (5.0-8.0); URINE APPEARANCE CLEAR; URINE BILIRUBIN NEGATIVE (NEGATIVE); URINE COLOR YELLOW; URINE GLUCOSE (UA) NEGATIVE (NEGATIVE); URINE KETONE TRACE (NEGATIVE); URINE LEUK ESTERASE NEGATIVE (NEGATIVE); URINE NITRITE NEGATIVE (NEGATIVE); URINE PROTEIN NEGATIVE (NEGATIVE)
[2024-06-19] MEDS: CLOTRIMAZOLE/BETAMET DIPROP 15 GM TUBE TP SCH (22:26)
[2024-06-19] MEDS: THIAMINE 100 MG TABLET PO SCH (22:27)
[2024-06-19] MEDS: ATORVASTATIN CA 40 MG TABLET (FP) PO SCH (22:27)
[2024-06-19] MEDS: MELATONIN 5 MG TABLETS PO SCH (22:27)
[2024-06-19] MEDS: BUDESONIDE/FORMETEROL FUMARATE 160/4.5 mcg INHALER IH SCH (22:29)
[2024-06-20] MEDS ORDERED: methaDONE HCL 40 MG DISPERSABLE TABLET PO SCH (06:00)
[2024-06-20] MEDS: methaDONE 80 MG, methaDONE 20 MG PO SCH (06:37)
[2024-06-20] MEDS: metFORMIN HCL 500 MG TABLET (FP) PO SCH (06:39)
[2024-06-20] MEDS: FUROSEMIDE 20 MG TABLET (FP) PO SCH (10:32)
[2024-06-20] MEDS: LISINOPRIL 20 MG TABLET PO SCH (10:32)
[2024-06-20 20:36] LABS: HEMATOCRIT 34.8 % (35.4-49); HEMOGLOBIN 11.1 GM/dL (11.7-16.9); MCH 26.5 pg (25.7-33.7); MCHC 31.7 g/dl (32.0-35.9); MEAN CELL VOLUME 83.5 fl (80-96); MEAN PLT VOLUME 8.9 fl (7.5-11.1); PLATELET COUNT 211 10^3/uL (134-434); RBC 4.17 M/mm3 (4.00-5.60); RDW 15.2 % (11.9-15.9); WHITE BLOOD COUNT 5.9 K/mm3 (4.0-10.0)
[2024-06-20 20:40] LABS: POTASSIUM 4.9 mmol/L (3.5-5.1)
[2024-06-20 20:42] LABS: ALBUMIN 3.9 g/dl (3.4-5.0); CALCIUM 9.2 mg/dL (8.5-10.1)
[2024-06-20 20:43] LABS: BLOOD UREA NITROGEN 42.6 mg/dL (7-18)
[2024-06-20 20:45] LABS: CREATININE 1.7 mg/dL (0.55-1.3)
[2024-06-20 20:47] LABS: BILIRUBIN,TOTAL 0.2 mg/dL (0.2-1); TOT PROT 8.2 g/dl (6.4-8.2)
[2024-06-20 21:09] LABS: SYPHILIS W/ RPR CONF NON-REACTIVE (NONREACTIVE)
[2024-06-20] MEDS: traZODone HCL 50 MG TABLET (FP) PO SCH (22:21)
[2024-06-20] MEDS: TOLNAFTATE 1% CREAM 15 GM TUBE TP SCH (22:22)
[2024-06-24] MEDS: sitaGLIPtin PHOSPHATE 50 MG TABLET PO SCH (06:59)
[2024-06-28] MEDS ORDERED: methaDONE HCL 40 MG DISPERSABLE TABLET PO SCH (07:00)
[2024-06-28] MEDS: methaDONE 80 MG, methaDONE 20 MG PO SCH (07:07)
[2024-07-06 14:18] VITALS: RESP 18
[2024-07-07 06:55] VITALS: TEMP 97.2
[2024-07-07 10:13] VITALS: BP 142/64; PULSE 67
== END 2024-07-07 09:50 | disposition home or self-care (01) | DRG 772 ==
LOC: YASAS 11:03 → Y3NR 13:43 → Y5N 06-22 10:21
PROVIDERS: ADMIT Psychiatry & Neurology Pain Medicine; ATTEND Psychiatry & Neurology Pain Medicine
PROC: HZ42ZZZ Group Counseling for Substance Abuse Treatment, Cognitive-Behavioral (ICD-10-PCS; principal; 2024-06-19)
DX: F14.20 Cocaine dependence, uncomplicated (principal); F10.20 Alcohol dependence, uncomplicated; F11.20 Opioid dependence, uncomplicated; F17.210 Nicotine dependence, cigarettes, uncomplicated; F19.282 Other psychoactive substance dependence with psychoactive substance-induced sleep disorder; F19.24 Other psychoactive substance dependence with psychoactive substance-induced mood disorder; G47.00 Insomnia, unspecified; I10 Essential (primary) hypertension; J45.909 Unspecified asthma, uncomplicated; E78.5 Hyperlipidemia, unspecified; E11.9 Type 2 diabetes mellitus without complications; Z79.84 Long term (current) use of oral hypoglycemic drugs; B35.1 Tinea unguium; M25.561 Pain in right knee; G89.29 Other chronic pain; Z99.89 Dependence on other enabling machines and devices
CPT/HCPCS: 36415; 80053; 80305; 80307; 81003; 82962; 85027; 86780; 86803; 87522; 87811; 93005; 93010